=== PATIENT | female | born 1960 | race Hispanic/Latino ===

== ENCOUNTER → 2020-11-15 | Outpatient (CLI) | payer OTHER | END | disposition home or self-care (01) | LOC: OIH 14:44 | PROVIDERS: ATTEND Internal Medicine | DX: M13.842 Other specified arthritis, left hand (principal); M13.841 Other specified arthritis, right hand; M13.832 Other specified arthritis, left wrist; M13.831 Other specified arthritis, right wrist | CPT/HCPCS: 73100 ==